=== PATIENT | female | born 2005 | race Hispanic/Latino ===

== ENCOUNTER 2024-11-26 06:50 | Emergency (ER) | payer OTHER ==
[2024-11-26] MEDS ORDERED: KETOROLAC 30 MG/ML INJ ONE (07:47)
[2024-11-26] MEDS ORDERED: ONDANSETRON 4 MG/2 ML VIAL ONE (07:47)
[2024-11-26] MEDS ORDERED: KETAMINE HCL IN 0.9 % NACL 50 MG/5 ML SYRINGE IV ONE (07:47)
[2024-11-26 07:57] LABS: Absolute Monocytes 0.3 K/uL (0.1-1.3); Absolute Neutrophil 13.2 K/uL (1.8-8.0); Basophils % 0.3 % (0-1.3); Eosinophils % 0.2 % (0-4.4); Hematocrit 40.5 % (36.0-45.0); Hemoglobin 13.2 g/dL (12.0-15.0); Lymphocytes % 6.9 % (15.3-44.8); MCH 28.7 pg (27.0-35.0); MCHC 32.5 g/dL (32.0-36.0); MCV 88.2 fL (80-100); MPV 9.5 fL (7.6-11.3); Monocytes % 2.2 % (3.3-12.3); Neutrophils % 90.4 % (41.7-73.7); Nucleated Red Blood Cells % 0.1 % (0-0); Platelets 252 thou/uL (152-406); RBC Red Blood Cell Count 4.59 M/uL (3.86-4.86); Red Cell Distribution Width 14.8 % (12.1-15.2)
[2024-11-26 08:06] LABS: Specific Gravity > 1.030 (1.005-1.030); Sqamous Epithelial 20-50 /HPF (None Seen); Urine Bacteria <20 /HPF (<20); Urine Bilirubin NEGATIVE (Negative); Urine Blood 3+ (OVER) (Negative); Urine Clarity Extremely Turbid (Clear); Urine Color Yellow (Yellow); Urine Culture Reflex Order NOT NEEDED; Urine Glucose TRACE (Negative); Urine Ketones 3+ (Negative); Urine Microscopic Reflex YN ORDER UMIC; Urine Mucus 4+ /HPF (None Seen); Urine Nitrite NEGATIVE (Negative); Urine Protein 1+ (Negative); Urine RBC >50 /HPF (None Seen); Urine Urobilinogen Normal (Normal); Urine WBC <5 /HPF (<5); Urine Yeast (Budding) Occasional /HPF (None Seen); Urine pH 5.5 (5.0-7.0)
[2024-11-26 08:51] LABS: Anion Gap 10.6 mEq/L (5.0-15.0); Bilirubin Total 0.9 mg/dL (0.2-1.0); Globulin 4.1 g/dL (2.3-3.5); Potassium 3.6 mEq/L (3.5-5.1); Protein, Total 8.1 g/dL (6.4-8.2)
[2024-11-26] MEDS ORDERED: NA CHLORIDE 0.9% 1,000 ML ONE (08:52)
[2024-11-26 09:18] LABS: Blood Morphology Comment NOT SEEN (NOT SEEN); Differential Total Cells Count 100; Lymphocytes 3 % (15-42); Monocytes 3 % (0-10); Platelet Estimate ADEQ; Segmented Neutrophils 94 % (40-80)
[2024-11-26] MEDS ORDERED: MORPHINE 4 MG/ML SYR ONE (09:38)
--- NOTE | 2024-11-26 09:49 | RAD REPORT ---
EXAMINATION: CT Abdomen Pelvis W Contrast CLINICAL INDICATION: Female, 19 years old. ABD PAIN TECHNIQUE: CT abdomen and pelvis was performed, after the administration of IV contrast, [facility]. Axial, sagittal and coronal reconstructions were obtained. One or more of the following dose reduction techniques were used: Automated exposure control, adjustment of the mA and k V according to patient size, and iterative reconstruction. Unless otherwise specified, incidental findings do not require dedicated imaging follow-up. COMPARISON: 01/13/2008 FINDINGS: LOWER CHEST: The visualized lung bases are clear. LIVER: Normal in size and contour. No focal lesion. BILIARY SYSTEM: No suspicious abnormalities. SPLEEN: Normal size. No focal lesion. PANCREAS: No mass, ductal dilation, or helio-pancreatic fluid. ADRENALS: Normal; no mass. KIDNEYS: Normal size. Asymmetric enhancement more delayed on the right. Mild right hydroureteronephro sis. 2 mm nonobstructing calculus at the right zygomatic ureteral junction, series 201 image 78. URINARY BLADDER: Decompressed limiting evaluation. GASTROINTESTINAL TRACT: No evidence of free air, significant intra-abdominal free fluid, bowel obstru ction or abscess. APPENDIX: Normal appendix. LYMPH NODES: No lymphadenopathy. MUSCULOSKELETAL: No acute or suspicious osseous abnormality. ADDITIONAL FINDINGS: None. IMPRESSION: Mild right hydroureteronephrosis. 2 mm obstructing calculus at the right vesicoureteral junction. THIS REPORT CONTAINS FINDINGS THAT MAY BE CRITICAL TO PATIENT CARE. The findings were verbally commun icated via telephone to Cecil Laura on 11/26/2024 9:46 AM.
--- NOTE | 2024-11-26 10:35 | ER ---
Nurse's Notes [facility] Name: Sheyla Gerardo Age: 19 yrs Sex: Female : 2005 Arrival Date: 11/26/2024 Time: 06:50 Bed 7 Private MD: Diagnosis: Calculus of ureter Presentation: 11/26 07:18 Chief complaint: Patient states: right lower abd pain and n/v since last night. Initial iw Sepsis Screen: Does the patient meet any 2 criteria? No. Patient's initial sepsis screen is negative. Does the patient have a suspected source of infection? No. Patient's initial sepsis screen is negative. Risk Assessment: Do you want to hurt yourself or someone else? Patient reports no desire to harm self or others. 07:18 Acuity: LUKASZ 3 iw 07:20 Coronavirus screen: At this time, the client does not indicate any symptoms associated iw with coronavirus-19. Ebola Screen: No symptoms or risks identified at this time. Onset of symptoms was November 25, 2024. 07:20 Method Of Arrival: Wheelchair iw Triage Assessment: 10:43 GI: Reports nausea, vomiting. ld1 Historical: - Allergies: 07:19 No Known Allergies; iw - Home Meds: 07:19 None [Active]; iw - PMHx: 07:19 None; iw - PSHx: 07:19 None; iw - Immunization history:: Adult Immunizations up to date. - Infectious Disease History:: Denies. - Social history:: Smoking status: Patient denies any tobacco usage or history of. Screenin:42 [facility] ED Fall Risk Assessment (Adult) History of falling in the last 3 months, ld1 including since admission No falls in past 3 months (0 pts) Confusion or Disorientation No (0 pts) Intoxicated or Sedated No (0 pts) Impaired Gait No (0 pts) Mobility Assist Device Used No (0 pt) Altered Elimination No (0 pt) Score/Fall Risk Level 0 - 2 = Low Risk Oriented to surroundings, Maintained a safe environment, Educated pt \T\ family on fall prevention, incl call for assistance when getting out of bed, Assessed \T\ reinforced patient's understanding of fall precautions, Provided non-skid footwear, Hourly rounding (assess needs \T\ fall precautionary measures) done, Used ambulatory aids as needed (educated on \T\ assisted with), Used gait belt as appropriate. Abuse screen: Denies threats or abuse. Denies injuries from another. Nutritional screening: No deficits noted. Tuberculosis screening: No symptoms or risk factors identified. Assessment: 07:36 General: Appears distressed, uncomfortable, Behavior is cooperative, anxious, crying, ld1 fussy. Pain: Complains of pain in right low back and right lower quadrant Pain does not radiate. Pain currently is 10 out of 10 on a pain scale. Quality of pain is described as sharp, shooting, throbbing, Pain began suddenly, Is continuous. Neuro: Level of Consciousness is awake, alert, obeys commands, Oriented to person, place, time, situation. Cardiovascular: Capillary refill < 3 seconds Patient's skin is warm and dry. Respiratory: Airway is patent Respiratory effort is even, unlabored. GI: Abdomen is round non-distended, Pt is actively vomiting undigested food. : No signs and/or symptoms were reported regarding the genitourinary system. EENT: No signs and/or symptoms were reported regarding the EENT system. Derm: No signs and/or symptoms reported regarding the dermatologic system. Musculoskeletal: No signs and/or symptoms reported regarding the musculoskeletal system. 07:55 Reassessment: No changes from previously documented assessment. Patient states symptoms ld1 have not improved. 08:57 Reassessment: Patient appears in no apparent distress at this time. No changes from ld1 previously documented assessment. Patient and/or family updated on plan of care and expected duration. Pain level reassessed. Patient is alert, oriented x 3, equal unlabored respirations, skin warm/dry/pink. 10:42 Reassessment: Patient appears in no apparent distress at this time. No changes from ld1 previously documented assessment. Patient and/or family updated on plan of care and expected duration. Pain level reassessed. Patient is alert, oriented x 3, equal unlabored respirations, skin warm/dry/pink. Vital Signs: 07:25 BP 138 / 94; Pulse 70; Resp 16; Pulse Ox 98% on R/A; iw 07:55 BP 118 / 80; Pulse 72; Resp 25; Pulse Ox 97% on R/A; ld1 08:57 BP 112 / 78; Pulse 68; Resp 18; Pulse Ox 100% on R/A; ld1 09:54 Pulse 70; Resp 18; Pulse Ox 97% on R/A; ld1 10:42 BP 123 / 83; Pulse 74; Resp 18; Pulse Ox 100% on R/A; ld1 ED Course: 06:54 Patient arrived in ED. gm2 07:01 Cecil Laura MD is Attending Physician. ec2 07:10 Monalisa Baig, SELENA is Primary Nurse. ld1 07:19 Triage completed. iw 07:36 Inserted saline lock: 20 gauge in right antecubital area, using aseptic technique. ld1 Blood collected. Flushed with 10 mL NS. 07:55 Urinalysis w/ reflexes Sent. ld1 07:55 Lipase Sent. ld1 07:55 CMP Sent. ld1 07:55 CBC with Diff Sent. ld1 07:55 Test, Serum Sent. ld1 09:09 CT Abd/Pelvis - IV Contrast Only In Process Unspecified. EDMS 10:42 No provider procedures requiring assistance completed. IV discontinued, intact, ld1 bleeding controlled, No redness/swelling at site. 10:42 Patient has correct armband on for positive identification. Placed in gown. Bed in low ld1 position. Call light in reach. Side rails up X2. coagulator on. Pulse ox on. NIBP on. Door closed. Noise minimized. Warm blanket given. 10:43 Arm band placed on right wrist. ld1 Administered Medications: 07:32 CANCELLED (Physician Discretion): morphineor iv 4 mg IVP once over 4 mins ec2 07:54 Drug: Ondansetron IVP 4 mg IVP once; over 2 minutes Route: IVP; Site: right antecubital;ld1 08:15 Follow up: Response: No adverse reaction ld1 07:54 Drug: Ketamine IVP 15 mg IVP once; for pain Route: IVP; Site: right antecubital; ld1 08:15 Follow up: Response: No adverse reaction; Pain is decreased ld1 07:55 Drug: TORadol - Ketorolac IVP 15 mg IVP once Route: IVP; Site: right antecubital; ld1 08:15 Follow up: Response: No adverse reaction ld1 08:54 Drug: NS 0.9% IV 1000 ml IV at 1000 ml once; to be given as a bolus over 60 minutes ld1 Route: IV; Rate: 1000 ml; Site: right antecubital; 10:43 Follow up: Response: No adverse reaction; IV Status: Completed infusion; IV Intake: ld1 1000ml 09:41 Drug: morphine IVP or IV 4 mg IVP once over 4 mins Route: IVP; Infused Over: 4 mins; ld1 Site: right antecubital; 09:51 Follow up: Response: No adverse reaction ld1 10:44 Follow up: Response: No adverse reaction ld1 Medication: 10:42 VIS not applicable for this client. ld1 Intake: 10:43 IV: 1000ml; Total: 1000ml. ld1 Outcome: 10:35 Discharge ordered by . ec2 10:43 Discharged to home ambulatory, ld1 10:43 Condition: stable 10:43 Discharge instructions given to patient, family, Instructed on discharge instructions, follow up and referral plans. medication usage, Demonstrated understanding of instructions, follow-up care, medications, Prescriptions given X 3, 10:44 Patient left the ED. ld1 Signatures: Dispatcher [employer] Gricelda Byers RN RN iw Monalisa Baig RN RN ld1 Cecil Laura MD MD ec2 Sania Angel 2
--- NOTE | 2024-11-26 10:36 | EDPHYS ---
Physician Documentation [facility] Name: Sheyla Gerardo Age: 19 yrs Sex: Female : 2005 Arrival Date: 11/26/2024 Time: 06:50 Bed 7 Private MD: ED Physician Cecil Laura HPI: 11/26 07:30 This 19 yrs old Female presents to ER via Wheelchair with complaints of ec2 Nausea/Vomiting, Abdominal Pain. 07:30 Patient arrives today for evaluation of right-sided abdominal pain along with nausea ec2 and vomiting onset of approximately 4 hours ago. Patient reports persistent pain. No previous abdominal surgeries. No urinary complaints. No cough and cold symptoms. LMP approximately 1 month ago.. Historical: - Allergies: 07:19 No Known Allergies; iw - Home Meds: 07:19 None [Active]; iw - PMHx: 07:19 None; iw - PSHx: 07:19 None; iw - Immunization history:: Adult Immunizations up to date. - Infectious Disease History:: Denies. - Social history:: Smoking status: Patient denies any tobacco usage or history of. ROS: 07:30 Constitutional: as per hpi ec2 Exam: 07:30 Constitutional: GEN: NAD Head: atraumatic Eyes: EOMI Ears: External ears are ec2 normal. CV: regular rate LUNGS: no respiratory distress ABD: non-distended, tender in the right abdomen, right CVA TTP. SKIN: no evidence of rashes MSK: no evidence of trauma Vital Signs: 07:25 BP 138 / 94; Pulse 70; Resp 16; Pulse Ox 98% on R/A; iw 07:55 BP 118 / 80; Pulse 72; Resp 25; Pulse Ox 97% on R/A; ld1 08:57 BP 112 / 78; Pulse 68; Resp 18; Pulse Ox 100% on R/A; ld1 09:54 Pulse 70; Resp 18; Pulse Ox 97% on R/A; ld1 10:42 BP 123 / 83; Pulse 74; Resp 18; Pulse Ox 100% on R/A; ld1 MDM: 07:11 Medical Screening Exam initiated ec2 07:30 Data reviewed: vital signs, nurses notes. ED course: Patient arrives today for ec2 evaluation of right-sided abdominal pain. Examination he has abdominal findings as above. Will obtain lab work, CT imaging. Differential includes UTI, pyelonephritis, ureteral stone, appendicitis.. 09:46 ED course: CT abdomen pelvis shows small 2 mm ureteral stone with mild hydronephrosis. ec2 Urine is noninfectious appearing.. 10:35 ED course: On reassessment patient is well-appearing no acute distress. Will discharge ec2 home have patient follow-up with urology. Return precautions given.. 11/26 07:30 Order name: CBC with Diff; Complete Time: 09:21 ec2 11/26 07:30 Order name: CMP; Complete Time: 10:37 ec2 11/26 07:30 Order name: Lipase; Complete Time: 10:37 ec2 11/26 07:30 Order name: Urinalysis w/ reflexes; Complete Time: 08:42 ec2 11/26 07:30 Order name: Test, Serum; Complete Time: 08:44 ec2 11/26 08:00 Order name: Manual Differential; Complete Time: 09:21 EDMS 11/26 07:30 Order name: CT Abd/Pelvis - IV Contrast Only; Complete Time: 09:57 ec2 11/26 07:30 Order name: IV Saline Lock; Complete Time: 07:36 ec2 11/26 07:30 Order name: Labs collected and sent; Complete Time: 07:36 ec2 Administered Medications: 07:32 CANCELLED (Physician Discretion): morphineor iv 4 mg IVP once over 4 mins ec2 07:54 Drug: Ondansetron IVP 4 mg IVP once; over 2 minutes Route: IVP; Site: right antecubital;ld1 08:15 Follow up: Response: No adverse reaction ld1 07:54 Drug: Ketamine IVP 15 mg IVP once; for pain Route: IVP; Site: right antecubital; ld1 08:15 Follow up: Response: No adverse reaction; Pain is decreased ld1 07:55 Drug: TORadol - Ketorolac IVP 15 mg IVP once Route: IVP; Site: right antecubital; ld1 08:15 Follow up: Response: No adverse reaction ld1 08:54 Drug: NS 0.9% IV 1000 ml IV at 1000 ml once; to be given as a bolus over 60 minutes ld1 Route: IV; Rate: 1000 ml; Site: right antecubital; 10:43 Follow up: Response: No adverse reaction; IV Status: Completed infusion; IV Intake: ld1 1000ml 09:41 Drug: morphine IVP or IV 4 mg IVP once over 4 mins Route: IVP; Infused Over: 4 mins; ld1 Site: right antecubital; 09:51 Follow up: Response: No adverse reaction ld1 10:44 Follow up: Response: No adverse reaction ld1 Disposition Summary: 11/26/24 10:35 Discharge Ordered Notes: Location: Home ec2 Condition: Stable ec2 Diagnosis - Calculus of ureter ec2 Followup: ec2 - With: Private Physician - When: - Reason: Re-evaluation by your physician Discharge Instructions: - Discharge Summary Sheet ec2 - Kidney Stones, [id number] ec2 Forms: - Medication Reconciliation Form ec2 - Antibiotic Education ec2 - Prescription Opioid Use ec2 - Patient Portal Instructions ec2 - Leadership Thank You Letter ec2 Prescriptions: - acetaminophen-codeine 300-30 mg Oral tablet - take 1 tablet ORAL route every 4 to 6 hours as needed for pain; 15 tablet; ec2 Refills: 0, Product Selection Permitted - tamsulosin 0.4 mg Oral capsule - take 1 capsule ORAL route every 24 hours; 14 capsule; Refills: 0, Product ec2 Selection Permitted - Zofran 4 mg Oral Tablet - take 1 tablet ORAL route every 12 hours As needed; 20 tablet; Refills: 0, ec2 Product Selection Permitted Signatures: Dispatcher [employer] Gricelda Byers RN RN iw Monalisa Baig RN RN ld1 Cecil Laura MD MD ec2 Corrections: (The following items were deleted from the chart) 07:30 07:30 CBC+H.LAB.BRZ ordered. EDMS EDMS 07:30 07:30 COMPREHENSIVE METABOLIC PANEL+C.LAB.BRZ ordered. EDMS EDMS 07:30 07:30 LIPASE+C.LAB.BRZ ordered. EDMS EDMS 07:30 07:30 Urinalysis+U.LAB.BRZ ordered. EDMS EDMS 07:30 07:30 TEST, SERUM+SC.LAB.BRZ ordered. EDMS EDMS 07:30 07:30 Abdomen Pelvis W Con+CT.RAD.BRZ ordered. EDMS EDMS 07:32 07:30 morphine IVP or IV 4 mg IVP once over 4 mins ordered. ec2 ec2 08:45 07:30 Patient arrives today for evaluation of right-sided abdominal pain along with ec2 nausea and vomiting onset of approximately 4 hours ago. Patient reports persistent pain. No previous abdominal surgeries. No urinary complaints. No cough and cold symptoms.. ec2
[2024-11-26 11:30] VITALS: BP 123/83; O2SAT 100
== END 2024-11-26 10:44 | disposition home or self-care (01) ==
LOC: ER 06:50
DX: N20.1 Calculus of ureter (principal)
CPT/HCPCS: 96361; 85025; 81001; 36415; 84703; 83690; 80053; 74177; 96375; 96374; 99285; Q9967; J2405; J7030

== ENCOUNTER 2025-03-23 20:35 | Emergency (ER) | payer OTHER, SELFPAY ==
[2025-03-23 21:32] LABS: Influenza A Ag Negative; Influenza B Ag Negative; SARS-CoV-2 Antigen Rapid Res Negative (Negative)
--- NOTE | 2025-03-23 21:53 | EDPHYS ---
Physician Documentation [facility] Name: Sheyla Gerardo Age: 20 yrs Sex: Female : 2005 Arrival Date: 03/23/2025 Time: 20:35 Bed DX3 Private MD: ED Physician Bessie Sharma HPI: 03/23 21:59 This 20 yrs old Female presents to ER via Ambulatory with complaints of Cough, kb Congestion, LOSS OF TASTE AND SMELL. 21:59 Pt is a 20 year old female who presents for sore throat, fever, cough, congestion, and kb loss of taste and smell. states symptoms started one week ago and have progressed since onset. Denies n/v/d. 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 - Infectious Disease History:: Denies. - Social history:: Smoking status: unknown. ROS: 21:56 Constitutional: As per HPI kb Exam: 21:56 Constitutional: This is a well developed, well nourished patient who is awake, alert, kb and in no acute distress. Head/Face: Normocephalic, atraumatic. ENT: Moist Mucous membranes Cardiovascular: Regular rate Respiratory: Respirations even and unlabored. No increased work of breathing. Talking in full sentences Abdomen/GI: Soft, non-tender. No distention Skin: Warm, dry with normal turgor. Normal color. MS/ Extremity: Pulses equal, no cyanosis. Neurovascular intact. Full, normal range of motion. Neuro: Awake and alert, GCS 15, oriented to person, place, time, and situation. Vital Signs: 21:01 BP 133 / 80; Pulse 107; Resp 18; Temp 98.8; Pulse Ox 100% ; Weight 83.91 kg; Height 5 cm10 ft. 4 in. ; Pain 0/10; 21:01 Body Mass Index 31.75 (83.91 kg, 162.56 cm) cm10 21:01 Pain Scale: Adult cm10 MDM: 21:00 Medical Screening Exam initiated kb 21:56 Differential Diagnosis: Bronchitis Influenza Upper Respiratory Infection Pneumonia. kb Data reviewed: vital signs, nurses notes. I considered the following discharge prescriptions or medication management in the emergency department I discussed and recommended Over The Counter medications, Antibiotics: At this time antibiotics are not recommended. Counseling: I had a detailed discussion with the patient and/or guardian regarding the historical points, exam findings, and any diagnostic results supporting the discharge/admit diagnosis, lab results, the need for outpatient follow up, a family practitioner, to return to the emergency department if symptoms worsen or persist or if there are any questions or concerns that arise at home. 03/23 21:01 Order name: COVID-19 Ag + Flu A+B Ag; Complete Time: 21:34 cm10 03/23 21:01 Order name: Group A Streptococcus Rapid; Complete Time: 21:34 cm10 03/23 21:36 Order name: Throat Culture EDMS Administered Medications: No medications were administered Disposition Summary: 03/23/25 21:52 Discharge Ordered Notes: Location: Home kb Condition: Stable kb Diagnosis - Acute upper respiratory infection, unspecified kb Followup: kb - With: Emergency Department - When: As needed - Reason: Worsening of condition Followup: kb - With: Private Physician - When: 2 - 3 days - Reason: Recheck today's complaints, Continuance of care, Re-evaluation by your physician Discharge Instructions: - Discharge Summary Sheet kb - Upper Respiratory Infection, Adult, [id number] kb - Viral Respiratory Infection, [id number] kb Forms: - Medication Reconciliation Form kb - Antibiotic Education kb - Prescription Opioid Use kb - Patient Portal Instructions kb - Leadership Thank You Letter kb Signatures: Dispatcher [employer] Lela Key FNP-Henrietta HAIDER-Bhumi Davis, RN RN cm10
--- NOTE | 2025-03-23 21:53 | ER ---
Nurse's Notes [facility] Name: Sheyla Gerardo Age: 20 yrs Sex: Female : 2005 Arrival Date: 03/23/2025 Time: 20:35 Bed DX3 Private MD: Diagnosis: Acute upper respiratory infection, unspecified Presentation: 03/23 21:01 Chief complaint: Patient states: Sore throat onset last week. Fever Saturday. Cough cm10 congestion onset a few days ago. Today lost taste and smell. Coronavirus screen: Client denies travel out of the [place] in the last 14 days. Ebola Screen: Patient denies travel to an Ebola-affected area in the 21 days before illness onset. Initial Sepsis Screen: Does the patient meet any 2 criteria? HR > 90 bpm. Does the patient have a suspected source of infection? No. Patient's initial sepsis screen is negative. Risk Assessment: Do you want to hurt yourself or someone else? Patient reports no desire to harm self or others. Onset of symptoms is unknown. 21:01 Method Of Arrival: Ambulatory cm10 21:01 Acuity: LUKASZ 4 cm10 Triage Assessment: 21:03 General: Appears in no apparent distress. comfortable, Behavior is calm, cooperative. cm10 Neuro: No deficits noted. Level of Consciousness is awake, alert, obeys commands, Oriented to person, place, time, situation, Appropriate for age. Respiratory: No deficits noted. Airway is patent Respiratory effort is even, unlabored, Respiratory pattern is regular, symmetrical. 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 - Infectious Disease History:: Denies. - Social history:: Smoking status: unknown. Screenin:02 [facility] ED Fall Risk Assessment (Adult) History of falling in the last 3 months, cm10 including since admission No falls in past 3 months (0 pts) Confusion or Disorientation No (0 pts) Intoxicated or Sedated No (0 pts) Impaired Gait No (0 pts) Mobility Assist Device Used No (0 pt) Altered Elimination No (0 pt) Score/Fall Risk Level 0 - 2 = Low Risk Oriented to surroundings, Maintained a safe environment, Hourly rounding (assess needs \T\ fall precautionary measures) done. Abuse screen: Denies threats or abuse. Denies injuries from another. Nutritional screening: No deficits noted. Tuberculosis screening: No symptoms or risk factors identified. Vital Signs: 21:01 BP 133 / 80; Pulse 107; Resp 18; Temp 98.8; Pulse Ox 100% ; Weight 83.91 kg; Height 5 cm10 ft. 4 in. ; Pain 0/10; 21:01 Body Mass Index 31.75 (83.91 kg, 162.56 cm) cm10 21:01 Pain Scale: Adult cm10 ED Course: 20:38 Patient arrived in ED. gm2 21:00 [facility]ble [facility]C [facility]. kb 21:00 Bessie Sharma MD is Attending Physician. kb 21:02 Triage completed. cm10 21:03 Arm band placed on right wrist. Patient placed in an exam room. cm10 22:03 Patient has correct armband on for positive identification. Provided Education on: cm10 Follow-up instructions. 22:03 No provider procedures requiring assistance completed. Patient did not have IV access cm10 during this emergency room visit. Administered Medications: No medications were administered Medication: 22:03 VIS not applicable for this client. cm10 Outcome: 21:52 Discharge ordered by . kb 22:03 Discharged to home cm10 22:03 Condition: good 22:03 Discharge instructions given to Pt left prior to receiving paperwork 22:03 Patient left the ED. cm10 Signatures: Lela Trimble FNP-C FNP-Ckb Martinez, Clarissa, RN RN cm10 Sania Angel gm2
[2025-03-23 22:26] VITALS: BP 133/80; TEMP 98.8; O2SAT 100
== END 2025-03-23 22:03 | disposition home or self-care (01) ==
LOC: ER 20:35
DX: J06.9 Acute upper respiratory infection, unspecified (principal); Z11.52 Encounter for screening for COVID-19
CPT/HCPCS: 36415; 87070; 87428; 99282